=== PATIENT | male | born 2000 | race African-American/Black ===

== ENCOUNTER 2020-07-10 14:47 | Emergency (ER) | payer OTHER ==
[~2020-07-10] VITALS: Ht 185.4 cm; Wt 68.0 kg
[~2020-07-10 14:47] MED LIST: ADVAIR 100-501 EACH; ADVAIR HFA 230M12 GM; IBUPROFEN 600600 M1 PO; NOHOMEMEDICATIONS; PROVENTIL; VENTOLIN HFA 1818 GM INH; VENTOLIN17 GM; ZOFRAN ODT4 MG PO
[2020-07-10 16:16] LABS: ABSOLUTE NEUTROPHILS 3.8 thou/uL (1.4-8.2); BASOPHILS 0.5 % (0.0-2.0); EOSINOPHILS 1.4 % (0.0-3.0); HEMATOCRIT 50.9 % (42.0-52.0); HEMOGLOBIN 18.1 gm/dL (14.0-18.0); LYMPHOCYTES 33.4 % (24.0-44.0); MCHC 35.6 g/dL (28.0-37.0); MCV 84.2 fL (80.0-100.0); MONOCYTES 9.6 % (1.0-8.0); PLATELET COUNT 402 thou/uL (150-400); POLYS 55.1 % (36.0-66.0); RBC 6.05 mil/uL (4.50-6.00); RDW 12.2 % (10.5-14.5)
[2020-07-10 16:38] LABS: ANION GAP 15 mmol/L (7-16); BUN 26 mg/dL (7-18); CALCIUM 9.6 mg/dL (8.5-10.1); CHLORIDE 90 mmol/L (98-107); CO2 23 mmol/L (21-32); CREATININE 1.5 mg/dL (0.7-1.3); GLUCOSE 103 mg/dL (74-106); SGOT 22 U/L (15-37); SGPT 32 U/L (30-65); SODIUM 128 mmol/L (136-145); TOTAL BILIRUBIN 1.3 mg/dL (0.2-1.0); TOTAL PROTEIN 8.7 g/dL (6.4-8.2); TROPONIN-I <0.06 ng/mL (<0.06)
[2020-07-10 16:41] LABS: POTASSIUM 2.9 mmol/L (3.5-5.1)
[2020-07-10] MEDS ORDERED: POTASSIUM20 PO (16:50)
[2020-07-10] MEDS ORDERED: TRAMADOL 50 MG50 MG PO (16:50)
[2020-07-10] MEDS ORDERED: PRILOSEC OTC20 MG PO (16:50)
--- NOTE | 2020-07-10 16:51 | EKG ---
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 : 2000 Requested By: Silas Villalpando Order Number: [id number] MD: Bryn Weaver Measurements Intervals [place] Rate: 95 P: 57 WA: 155 QRS: 54 QRSD: 91 T: 44 QT: 389 QTc: 489 Interpretive Statements Sinus rhythm ST elevation suggests acute pericarditis Prolonged QT interval Baseline wander in lead(s) V6 No previous ECG available for comparison Electronically Signed On 07-10-2020 16:51:21 CDT by Bryn Weaver [email or web address] <ELECTRONICALLY SIGNED> By: Bryn Weaver MD, FAC 07/10/20 1651 1518 1518 Bryn Weaver MD, [facility] /EPI
[2020-07-10 17:43] VITALS: BP 141/96
[2020-07-12] MEDS ORDERED: TRAMADOL 50 MG50 MG PO (12:46)
[2020-07-12] MEDS ORDERED: POTASSIUM20 PO (12:46)
[2020-07-12] MEDS ORDERED: PRILOSEC OTC20 MG PO (12:46)
== END 2020-07-10 17:43 | disposition home or self-care (01) ==
LOC: ER 14:47
PROVIDERS: Emergency Medicine
DX: R07.89 Other chest pain (principal); R11.2 Nausea with vomiting, unspecified; E87.6 Hypokalemia; R10.11 Right upper quadrant pain; J45.909 Unspecified asthma, uncomplicated

== ENCOUNTER 2020-07-30 07:32 | Emergency (ER) | payer OTHER ==
[~2020-07-30] VITALS: Ht 188 cm; Wt 68.0 kg
[~2020-07-30 07:32] MED LIST changes: +POTASSIUM20 PO; +PRILOSEC OTC20 MG PO; +TRAMADOL 50 MG50 MG PO
[2020-07-30 08:15] LABS: CALCIUM 10.6 mg/dL (8.5-10.1); CREATININE 1.4 mg/dL (0.7-1.3)
[2020-07-30 08:17] LABS: POTASSIUM 4.5 mmol/L (3.5-5.1)
[2020-07-30 08:18] LABS: ALBUMIN 5.3 g/dL (3.4-5.0); TOTAL BILIRUBIN 1.1 mg/dL (0.2-1.0); TOTAL PROTEIN 9.8 g/dL (6.4-8.2)
[2020-07-30 08:36] LABS: ABSOLUTE NEUTROPHILS 4.1 thou/uL (1.4-8.2); BASOPHILS 0.4 % (0.0-2.0); EOSINOPHILS 0.5 % (0.0-3.0); HEMATOCRIT 52.2 % (42.0-52.0); HEMOGLOBIN 17.7 gm/dL (14.0-18.0); LYMPHOCYTES 25.6 % (24.0-44.0); MCH 29.7 pg (26.0-34.0); MCHC 33.9 g/dL (28.0-37.0); MCV 87.5 fL (80.0-100.0); MONOCYTES 8.1 % (1.0-8.0); PLATELET COUNT 313 thou/uL (150-400); POLYS 65.4 % (36.0-66.0); RBC 5.96 mil/uL (4.50-6.00); RDW 13.7 % (10.5-14.5); WBC 6.3 thou/uL (4.0-11.0)
[2020-07-30 08:44] LABS: MAGNESIUM 2.3 mg/dL (1.8-2.4); PHOSPHORUS 3.8 mg/dL (2.5-4.9); TROPONIN-I <0.06 ng/mL (<0.06)
[2020-07-30 08:54] LABS: BE(vivo) -1.3 mmol/L (-2 to +3); HCO3 12.4 mmol/L (22.0-26.0); PO2 132.5 mmHg (80.0-100.0); sO2 99.3 % (92.0-98.0)
[2020-07-30 08:55] LABS: PCO2 9.6 mmHg (35.0-45.0); pH 7.729 (7.360-7.450)
[2020-07-30 09:45] VITALS: BP 130/92
[2020-07-30] MEDS ORDERED: TRAMADOL 50 MG50 MG PO (09:55)
--- NOTE | 2020-07-30 16:04 | EKG ---
[facility] [place] [address] ELECTROCARDIOGRAM REPORT Name: DYLON REMY [id number] Admission: 07/30/20 Attend Phys: Discharge: 07/30/20 Date of : [birth year] Report #: [id number] THIS REPORT FOR: cc: LIZZ - [place] [facility]/PCP LIZZ - [place] [facility]/PCP Salo Juárez MD [facility] THIS REPORT FOR: //name// [facility] ED Test Date: 2020-07-30 Test Time: 09:50:03 Pat Name: DYLON REMY Department: Room: Gender: Cyber Defense Analyst: : 2000 Requested By: Silas Villalpando Order Number: [id number] MD: Salo Juárez Measurements Intervals [place] Rate: 93 P: 73 ME: 155 QRS: 75 QRSD: 118 T: 44 QT: 359 QTc: 447 Interpretive Statements Sinus rhythm Biatrial enlargement Nonspecific intraventricular conduction delay Compared to ECG 07/10/2020 15:18:33 Atrial abnormality now present Intraventricular conduction delay now present Prolonged QT interval no longer present ST (T wave) deviation still present Electronically Signed On 07-30-2020 16:04:43 CDT by Salo Juárez [email or web address] <ELECTRONICALLY SIGNED> By: Salo Juárez MD, FAC 07/30/20 1604 0950 0950 Salo Juárez MD, FAC /EPI
== END 2020-07-30 10:00 | disposition left against medical advice (07) ==
LOC: ER 07:32
PROVIDERS: Emergency Medicine
DX: K82.4 Cholesterolosis of gallbladder (principal); F45.8 Other somatoform disorders; R11.2 Nausea with vomiting, unspecified; F12.90 Cannabis use, unspecified, uncomplicated; E87.3 Alkalosis; J45.909 Unspecified asthma, uncomplicated; Z79.899 Other long term (current) drug therapy; Z88.0 Allergy status to penicillin